=== PATIENT | female | born 1990 | race Caucasian/White ===

== ENCOUNTER 2022-03-20 12:03 | Outpatient (CLI) | payer OTHER, SELFPAY ==
--- NOTE | 2022-03-20 12:15 | CRLHL7_ITS ---
For Patients: As a result of the Cures Act, medical imaging exams and procedure reports are released immediately into your electronic medical record. You may view this report before your referring provider. If you have questions, please contact your health care provider. INDICATION: First trimester scan, establish dates. COMPARISON: None. TECHNIQUE: Real-time resendiz-scale imaging of the pelvis was performed. FINDINGS: Sonographic imaging demonstrates a single living intrauterine gestation. The embryo demonstrates a regular cardiac rate measuring 176 beats per minute. The embryo`s crown-rump length measurement of 2.3 cm corresponds to a gestational age of 9 weeks and 0 days with a sonographic due date of 10/23/2022. There is a normal-appearing yolk sac. There are no gross abnormalities noted within the embryo at this early state of development. The gestational sac has a normal appearance. There is no evidence of a perigestational hemorrhage. The amount of fluid within the sac appears appropriate for gestational age. The cervix is closed. The myometrium appears normal. The ovaries are of normal size. There are no suspicious fluid collections noted in the cul-de-sac. Trace physiologic free fluid may be present. IMPRESSION: Normal first trimester OB ultrasound exam. Gestational age calculated at 9 weeks 0 days with a sonographic due date of 10/23/2022. Dictated by Ananda Neal MD @ 03/20/2022 2:12:11 PM (Electronically Signed)
== END 2022-03-20 12:04 | disposition home or self-care (01) ==
PROVIDERS: Visit Provider Advanced Practice Midwife
DX: Z34.91 Encounter for supervision of normal pregnancy, unspecified, first trimester (principal); Z3A.09 9 weeks gestation of pregnancy
CPT/HCPCS: 76817

== ENCOUNTER 2022-03-20 14:14 | Outpatient (CLI) | payer OTHER, SELFPAY ==
[2022-03-20 18:41] LABS: Hepatitis B Surface Antigen* Negative (Negative)
[2022-03-20 18:50] LABS: HIV 1/2/P24 Combo Screen* Negative (Negative)
[2022-03-20 18:59] LABS: Hepatitis C Virus Antibody* Negative (Negative)
[2022-03-22 15:36] LABS: Varicella-Zoster Virus Ab, IgG 444.2 IV
[2022-03-22 15:39] LABS: Rubella Antibody IgG 35.3 IU/mL
[2022-03-22 18:34] LABS: Rapid Plasma Reagin (RPR) Non Reactive (Non Reactive)
== END 2022-03-20 14:15 | disposition home or self-care (01) ==
LOC: NFLDREF 14:15
PROVIDERS: Visit Provider Physician Assistant
DX: Z34.91 Encounter for supervision of normal pregnancy, unspecified, first trimester (principal); Z3A.09 9 weeks gestation of pregnancy
CPT/HCPCS: 86592; 86703; 86762; 86787; 86803; 86850; 86900; 86901; 87086; 87340; 87491; 87591; 88175

== ENCOUNTER 2022-06-02 07:16 | Outpatient (CLI) | payer OTHER, SELFPAY ==
--- NOTE | 2022-06-02 07:15 | CRLHL7_ITS ---
For Patients: As a result of the Century Cures Act, medical imaging exams and procedure reports are released immediately into your electronic medical record. You may view this report before your referring provider. If you have questions, please contact your health care provider. INDICATION: Evaluate anatomy. COMPARISON: 03/1922 TECHNIQUE: Real time resendiz scale imaging of the fetus was performed as well as color Doppler analysis of the umbilical vessels. FINDINGS: Sonographic imaging demonstrates a single living intrauterine gestation. Fetus demonstrates a regular cardiac rate of 159 beats per minute. Fetus has a variable position. The placenta lies fundal posterior without evidence of placenta previa. The edge of the placenta is located 5.8 cm from the internal cervical os. Amniotic fluid volume appears normal. Single deepest vertical pocket: 4.5 cm. The cervix is closed and measures 3.1 cm in length. The composite ultrasound gestational age is calculated at 20 weeks 4 days with an estimated sonographic due date of 10/16/2022. The estimated weight is 364 grams which lies at the 85th %. The following biometric measurements were obtained: Biparietal diameter: 4.8 cm/20 weeks 3 days 71st% Head circumference: 17.4 cm/20 weeks 0 days 47th% Abdominal circumference: 16.2 cm/21 weeks 2 day 87th% Femur length: 3.2 cm/19 weeks 6 days 45th% The HC/AC ratio measures: 1.07 range (1.07-1.25) On anatomic survey, there is a normal appearance of the cerebral ventricles, cavum septi pellucidi, cisterna magna and cerebellum. The nose, lips, and facial profile are not well-visualized. The cervical, thoracic and lumbar spine are well visualized and appear normal. Possible echogenic left ventricular focus, images 22-23. The left and right ventricular outflow tracts appear normal. The diaphragm and stomach appear normal. The kidneys and bladder also appear normal. There is a normal three-vessel cord and cord insertion site. The four extremities appear normal. IMPRESSION: Concordance of clinical and sonographic dating. Incomplete visualization of the nose, lips and profile due to position. Possible echogenic focus left ventricle. A short-term follow-up in 2 weeks suggested for further evaluation of these findings. Remainder of the anatomic survey is normal. Dictated by Ananda Neal MD @ 06/02/2022 10:17:45 AM (Electronically Signed)
== END 2022-06-02 07:17 | disposition home or self-care (01) ==
LOC: US 07:17
PROVIDERS: Visit Provider Obstetrics & Gynecology
DX: Z34.92 Encounter for supervision of normal pregnancy, unspecified, second trimester (principal); Z3A.20 20 weeks gestation of pregnancy
CPT/HCPCS: 76805

== ENCOUNTER 2022-06-16 13:49 | Outpatient (CLI) | payer OTHER, SELFPAY ==
--- NOTE | 2022-06-16 14:00 | CRLHL7_ITS ---
For Patients: As a result of the Century Cures Act, medical imaging exams and procedure reports are released immediately into your electronic medical record. You may view this report before your referring provider. If you have questions, please contact your health care provider. INDICATION: F/U ON MISSED ANATOMY COMPARISON: 06/02/2022 TECHNIQUE: Real time resendiz scale imaging of the fetus was performed. FINDINGS: Sonographic imaging demonstrates a single living intrauterine gestation. Fetus demonstrates a regular cardiac rate of 141 beats per minute. Fetus has a vertex position. The placenta lies posteriorly. Amniotic fluid volume appears normal. Single deepest vertical pocket: 3.3 cm. The baby`s face turned posterior during the examination and the hands were in front of the face, preventing adequate visualization of the nose and lips. The heart also is not well visualized on today`s study. IMPRESSION: Persistent incomplete visualization of nose and lips. The heart is not well visualized either on today`s exam. Dictated by Ananda Neal MD @ 06/17/2022 12:50:47 PM (Electronically Signed)
== END 2022-06-16 13:50 | disposition home or self-care (01) ==
LOC: US 13:49
PROVIDERS: Visit Provider Obstetrics & Gynecology
DX: O35.8XX0 Maternal care for other (suspected) fetal abnormality and damage, not applicable or unspecified (principal)
CPT/HCPCS: 76816

== ENCOUNTER 2022-07-29 09:20 | Outpatient (CLI) | payer OTHER, SELFPAY ==
[2022-07-31 01:32] LABS: Rapid Plasma Reagin (RPR) Non Reactive (Non Reactive)
== END 2022-07-29 09:21 | disposition home or self-care (01) ==
PROVIDERS: Visit Provider Obstetrics & Gynecology
DX: Z34.90 Encounter for supervision of normal pregnancy, unspecified, unspecified trimester (principal)
CPT/HCPCS: 86592

== ENCOUNTER 2022-08-12 12:51 | Outpatient (CLI) | payer OTHER, SELFPAY | END 2022-08-12 12:52 | disposition home or self-care (01) | LOC: US 12:52 | PROVIDERS: Visit Provider Pediatrics Neonatal-Perinatal Medicine | DX: Z34.93 Encounter for supervision of normal pregnancy, unspecified, third trimester (principal); Z3A.30 30 weeks gestation of pregnancy | CPT/HCPCS: 76816 ==

== ENCOUNTER 2022-09-22 09:23 | Outpatient (CLI) | payer OTHER, SELFPAY ==
[2022-09-23 12:11] LABS: Strep B DNA Probe NEGATIVE (Negative)
[2022-09-23 12:26] LABS: Strep B Pen/Amox Allergy No
== END 2022-09-22 09:24 | disposition home or self-care (01) ==
LOC: NFLDREF 09:23
PROVIDERS: Visit Provider Obstetrics & Gynecology
DX: Z34.90 Encounter for supervision of normal pregnancy, unspecified, unspecified trimester (principal)
CPT/HCPCS: 87081; 87653

== ENCOUNTER 2022-09-22 10:13 | Outpatient (CLI) | payer OTHER, SELFPAY ==
--- NOTE | 2022-09-22 10:15 | CRLHL7_ITS ---
For Patients: As a result of the Century Cures Act, medical imaging exams and procedure reports are released immediately into your electronic medical record. You may view this report before your referring provider. If you have questions, please contact your health care provider. INDICATION: Third trimester scan, evaluate growth. COMPARISON: 06/16/2022 TECHNIQUE: Real time resendiz scale imaging of the fetus was performed. FINDINGS: Sonographic imaging demonstrates a single living intrauterine gestation. Fetus demonstrates a regular cardiac rate of 154 beats per minute. Fetus has a breech position. The placenta lies left posterior. Amniotic fluid volume appears lower limits normal and there is a single deepest vertical pocket: 2.5 cm. DESTINY 7.4 cm. The estimated weight is 2702gm which lies at the 41st %. On the prior OB ultrasound exam dated 06/02/2022 the estimated weight was at the 85th%. BPD 54th percentile. HC 85th percentile. AC 46th percentile. FL 14th percentile. The HC/AC ratio measures 1.07 range (0.92-1.08). IMPRESSION: Sonographic gestational age 36 weeks 1 day and sonographic due date 10/19/2022. Good correlation with dates. Normal interval growth. Estimated weight 41st percentile. Abdominal circumference 46th percentile. Lower limits of normal amniotic fluid with four-quadrant DESTINY measuring 7.4 cm. Dictated by Ananda Neal MD @ 09/22/2022 11:14:29 AM (Electronically Signed)
== END 2022-09-22 10:14 | disposition home or self-care (01) ==
LOC: US 10:13
PROVIDERS: Visit Provider Obstetrics & Gynecology
DX: Z34.93 Encounter for supervision of normal pregnancy, unspecified, third trimester (principal); Z3A.36 36 weeks gestation of pregnancy
CPT/HCPCS: 76816

== ENCOUNTER 2022-09-29 13:56 | Outpatient (CLI) | payer OTHER, SELFPAY ==
--- NOTE | 2022-09-29 14:00 | CRLHL7_ITS ---
For Patients: As a result of the Century Cures Act, medical imaging exams and procedure reports are released immediately into your electronic medical record. You may view this report before your referring provider. If you have questions, please contact your health care provider. INDICATION: 32 year-old female. Evaluate presentation. Follow-up breech presentation. TECHNIQUE: Limited transabdominal obstetrical ultrasound. COMPARISON: September 22, 2022. FINDINGS: Single living intrauterine in kala breech presentation unchanged. Posterior and left-sided placenta. heart rate 142 beats per minute. Amniotic fluid volume index is normal at 8.2 cm. Single deepest pocket measurement also normal at 3.8 cm. IMPRESSION: Single living intrauterine in breech presentation. Dictated by Gonzales Espinal MD @ 09/29/2022 6:06:40 PM (Electronically Signed)
== END 2022-09-29 13:57 | disposition home or self-care (01) ==
PROVIDERS: Visit Provider Obstetrics & Gynecology
DX: O32.1XX0 Maternal care for breech presentation, not applicable or unspecified (principal)
CPT/HCPCS: 76815

== ENCOUNTER 2022-10-01 07:04 | Outpatient (CLI) | payer OTHER, SELFPAY ==
[2022-10-01 07:25] VITALS: PULSE 128; O2SAT 98
[2022-10-01 07:27] VITALS: BP 113/77; PULSE 120; RESP 16; TEMP 37.2
[2022-10-01 08:04] LABS: SARS PCR* Negative SARS-CoV-2 (Negative)
[2022-10-01] MEDS: TERBUTALINE 1 MG/ML INJ 0.25 MG SUBCUT (08:13)
--- NOTE | 2022-10-01 08:56 | PM.PROC ---
Procedure Note Date Seen: 10/01/22 Date of procedure: 10/01/22 Will [facility] bill your pro fee for this procedure?: Yes Pre-op diagnosis: Intrauterine at 37 1/7 weeks, kala breech presentation Post-op diagnosis: same Procedure: External cephalic version Procedure Description: PREOPERATIVE DIAGNOSIS: 1. Intrauterine at 37 1/7 weeks gestation. 2. Kala breech presentation. POSTOPERATIVE DIAGNOSIS: 1. Intrauterine at 37 1/7 weeks gestation. 2. Kala breech presentation. PROCEDURE: 1. Nonstress test. 2. Limited OB ultrasound. 3. External cephalic version. SURGEON: Jez. AUTOMATIC PRINT DEVELOPER: Chandler.. ANESTHESIA: None. COMPLICATIONS: None. FINDINGS: Nonstress test: heart rate baseline 135 beats per minute, good variability, 15 x 15 accelerations present, no decelerations, category 1. Limited OB ultrasound: Single, living, intrauterine gestation in a kala breech presentation with the back along the maternal right, grossly normal amniotic fluid volume, posterior placenta. PROCEDURE NOTE: A nonstress test was performed, which was reactive and reassuring. There were uterine contractions noted on uterine activity monitoring, but they were palpably mild and the patient was unaware them. A limited OB ultrasound was performed at the bedside to determine position. Findings noted above. Informed consent was obtained for external cephalic version. Terbutaline 0.25 mg was administered to the patient subcutaneously. External cephalic version was attempted. I applied upward pressure to the breech, Shelley Arteaga applied pressure to the vertex, and we attempted to gently coax the fetus in a backward roll in a counter-clockwise direction. This attempt was unsuccessful. A 2nd attempt was made to coax the in a forward roll in a clockwise direction, as Shelley applied pressure to the breech and I applied pressure to the vertex. This attempt was unsuccessful. A 3rd attempt was made, again in a counter-clockwise direction, which was also unsuccessful. heart tones were noted to be normal between and after the attempts. The patient tolerated the procedure well. monitoring for 1 hour after the procedure was continued to be reassuring. Anesthesia: none Surgeon: Amada Story MD Supervisor [employer] Department: Shelley Arteaga Condition: stable Disposition: other (Home, self-care, after 1 hour of monitoring.)
--- NOTE | 2022-10-01 10:42 | PC.OBNST ---
The provider's electronic signature indicates the NST is reactive/appropriate for gestational age. *Note to provider: If an addendum is required, open the patient's chart and click on the note under the Nurse/Allied Health tab.
== END 2022-10-01 10:17 | disposition home or self-care (01) ==
LOC: OB 10:02 → OB CLI 15:50
PROVIDERS: Visit Provider Obstetrics & Gynecology
DX: Z34.93 Encounter for supervision of normal pregnancy, unspecified, third trimester (principal); Z3A.37 37 weeks gestation of pregnancy
CPT/HCPCS: 59025; 59412; 87635; 99211; J3105

== ENCOUNTER 2022-10-14 03:34 | Inpatient (IN) | payer OTHER, SELFPAY ==
[2022-10-14] VITALS (32 sets, daily range): BP systolic 94–125; BP diastolic 56–75; PULSE 63–108; RESP 16–20; TEMP 36.5–36.7; O2SAT 96–100
[2022-10-14 02:57] LABS: Amnisure Rom* POSITIVE
--- NOTE | 2022-10-14 03:34 | W.PM.LDBA ---
Subjective History of Present Illness Time Seen by Provider: 03:34 Date Seen: 10/14/22 Narrative: Patient is being admitted to Labor and Delivery for delivery. She is a 32 year old at 39 0/7 weeks gestation. Her full history and physical was dictated by Dr. Story on 09/29/22. Please see this for details. Patient presents to labor and delivery at this time after concerns for watery like discharge at home about 1 hour prior to arrival to unit. Patient denied pelvic pain, vaginal bleeding, normal movement. Patient had scheduled section later today due to breech presentation. Comments: Expected Delivery Route/Plan MD patient - Primary for breech at [address] Story on 10/14/22. H&P done 09/29/[address] Story.? Consent signed 10/09/22. Specific Issues/Plans Blood type: O positive 1. Suboptimal facial views on FAS 06/02/2022 Follow-up ultrasound:? 06/16/2022?Persistent incomplete visualization of nose and lips. The heart is not well visualized either on today`s exam. Follow-up ultrasound scheduled for early August:Normal 2. Echogenic foci left ventricle Maternity T21 offered and discussed on 06/16/22:? declined 3.? Level 1 anatomy scan not yet completed after 2 tries.? Referral for level 2 US placed, but patient declined due to financial concerns. Will be able to do follow-up ultrasound after the of the year when insurance coverage changes: normal 08/11/22? 4. BREECH at 35 6/7 weeks Official US 09/22/22: Breech, SDP: 2.5cm, DESTINY: 7.4 normal but borderline low. EFW: 41%, BPD: 54%, HC: 85%, AC: 46%, FL: 14% ECV to be scheduled at 37 weeks:? Unsuccessful. Schedule primary at 39 weeks (form submitted) COVID vaccine:? Declined Flu shot: Declined Tdap: 08/26/2022 OB - Problem Based A/P Additional Plan (1) Breech presentation: Status: Acute (2) Labor and delivery affected by breech presentation: Status: Acute Plan 32-year-old with IUP at 390/7 weeks with known breech presentation presents to the unit after SROM at around 2:00 a.m. this morning. Breech presentation confirmed by bedside ultrasound. Cervical check consistent with labor. Will proceed with delivery now. GBS negative. Will recommend Ancef and Azithromycin as infection prophylaxis. Informed consent had been signed in clinic. Patient and agree with plan. OB Result Labs Labs: Amnisure positive OB Exam Physical Exam Vital signs: Pulse BP Pulse Ox 108 H 117/75 98 10/14/22 02:33 10/14/22 02:33 10/14/22 02:32 Detailed Labor and Delivery Exam Patient Gravid: Yes Dilation (cm): 3 Effacement (%): 100 Cervix position: mid Consistency: soft Contraction Frequency: Irregular Tachysystole: No Contraction intensity: Mild Fetus (Single) Station: 0 Position: Other (Bud breech confirmed by bedside ultrasound) Amniotic Membrane Status: SROM Amniotic Membrane Fluid Description: Clear Heart Rate Baseline: 130 Monitor Accelerations: Present Monitor Decelerations: None Clinical Psychologist Private Practice Variability: Moderate (6-25)
[2022-10-14 03:52] LABS: Hemoglobin* 10.8 gm/dL (12.0-16.0)
[2022-10-14] MEDS: LACTATED RINGERS 1000 ML 1,000 ML 999 ML IV (04:00)
[2022-10-14 04:19] LABS: Basophils Absolute Auto 0.03 K/uL (0.00-0.30); Basophils Percent Auto 0.3 % (0.0-3.0); Eosinophils Absolute Auto 0.06 K/uL (0.00-0.50); Eosinophils Percent Auto 0.6 % (0.0-7.0); Hematocrit 29.7 % (33.0-51.0); Hemoglobin* 10.7 gm/dL (12.0-16.0); Immature Granulocytes Abs Auto 0.09 K/uL (0.00-0.30); Immature Granulocytes Pct Auto 0.8 %; Lymphocytes Percent Auto 15.8 % (20-44); Mean Corpuscular HGB Conc 36 gm/dL (32-36); Mean Corpuscular Hemoglobin 34 pg (26-34); Mean Corpuscular Volume 93 fL (80-100); Monocytes Percent Auto 6.3 % (0.0-11.0); Neutrophils Percent Auto 76.2 % (42.0-72.0); Platelet Count* 280 K/uL (140-440); RDW Coefficient of Variation % 13.7 % (11.5-15.5); Red Blood Count 3.19 m/uL (4.00-5.20); White Blood Count* 10.88 K/uL (4.50-11.00)
[2022-10-14 04:21] LABS: Slide Review Reflex No
[2022-10-14 04:23] LABS: SARS PCR* Negative SARS-CoV-2 (Negative)
[2022-10-14] MEDS: AZITHROMYCIN 500 MG in 0.9 % SODIUM CHLORIDE 250 ml 250 ML 255 MG IVPB (04:30)
[2022-10-14] MEDS: CEFAZOLIN 2 GM INJ IVP (04:32)
[2022-10-14] MEDS: LACTATED RINGERS 1000 ML 1,000 ML 100 ML IV (04:52)
--- NOTE | 2022-10-14 05:38 | P.OBPRC_ITS ---
Procedure Pre-op/Post-op diagnoses: Pre-Op/Post-Op Diagnoses Pre-Op Diagnoses: 1. Intrauterine at 39 0/7 weeks 2. Kala breech presentation in labor, SROM Post-Op Diagnoses: 1. Same, now delivered Procedure Done: Global Procedure Details: Procedures Operation Date: 10/14/22 04:30 Actual Procedure Side Surgeon p Section Colleen Pena MD Estimated blood loss (mL): 295 Disposition: floor Anesthesia type: Spinal Complications: None Narrative: PREOPERATIVE DIAGNOSES: 1. Intrauterine at 39 0/7 weeks' gestation. 2. Kala breech, in labor, SROM POSTOPERATIVE DIAGNOSES: 1. Same now delivered NAME OF PROCEDURE: Primary low transverse section. ANESTHESIA: Spinal. COMPLICATIONS: None. QUANTITATIVE BLOOD LOSS: DRAINS: Lebron to gravity. FINDINGS: Live-born male infant, kala breech presentation, Apgars 9 and 9 at 1 and 5 minutes respectively. weight 7 lb 4 oz. PROCEDURE: After obtaining informed consent, the patient was taken to the operating room where spinal anesthesia was obtained and found to be adequate. She was prepared and draped in the normal sterile fashion in the dorsal supine position with a leftward tilt. A Pfannenstiel skin incision was made with a scalpel about 2 cm above symphysis pubic bone, 8-10 cm in length. This incision was carried down to the underlying layer of fascia with the Bovie and scalpel. The fascia was incised in the midline and the incision extended laterally. The rectus muscles were then in the midline. The Jaylen O retractor was then placed into the incision. Metzenbaum scissors utilized to create a bladder flap. The lower uterine segment was then incised in a transverse fashion with the scalpel. Upon entry into the uterus, no amniotic fluid was noted. The uterine incision was extended cephalo caudally with blunt finger fractionation. sacrum/buttocks were brought to incision and with fundal pressure fetus was delivered up to trunk, hips were then grasped with a lap and gently assisted delivery of both legs that were extended, then arms were assisted and delivered via the Loveset maneuver. head was hyperextended so Lfiopnnrw-Vkyfrsb-Ovaz maneuver was performed to help flex the head and deliver the head. The cord was doubly clamped and cut, and the infant was handed off the field to [facility] for evaluation. The placenta was delivered spontaneously with umbilical cord traction and fundal massage. The uterus was cleared of all clots and debris. The uterine incision was reapproximated in a running locking fashion with a 0 Vicryl suture. A 2nd layer of the same suture was used to imbricate in horizontal fashion. The gutters were inspected and cleared of blood clot. A small right paratubal cyst was removed with cautery, hemostasis secured. There were 2 more smaller paratubal cysts seen at the left adnexa not removed as there were more closely attached to the mesosalpinx to avoid risk of heavy bleeding. Small bleeding vessels from bladder flap were coagulated and Lety utilize o further secure hemostasis. All instruments and retractors were removed. The subfascial tissues were carefully inspected and hemostasis assured. The fascia was reapproximated in a running fashion with a looped 0 Vicryl suture. The subcutaneous tissues were inspected and hemostasis was assured. The subcutaneous fat layer was reapproximated with interrupted sutures of 3-0 Vicryl. The skin was closed in a subcuticular fashion with 4-0 Monocryl. The patient tolerated the procedure well. Sponge, lap, needle, and instrument counts were reported as correct x2. The patient was taken to the recovery room, awake, and in stable condition. She did receive 2 grams of IV Ancef and 500mh of Azithromycin preoperatively. 1 dose of TXA given while closing the subcutaneous tissue due to multiple small bleeding vessels with gentle manipulation of the tissue, also a compression dressing left in place to further secure hemostasis, avoid hematoma etc... Patient transferred in a stable condition to the floor.
--- NOTE | 2022-10-14 05:53 | W.ANESCHARGE ---
Anesthesia Charges Start Date/Time Anesthesia Start Date: 10/14/22 Anesthesia Start Time: 04:27 Stop Date/Time Anesthesia Stop Date: 10/14/22 Anesthesia Stop Time: 05:50 Summary Emergency: FUGITIVE INVESTIGATOR
--- NOTE | 2022-10-14 05:54 | P.NB_ITS ---
Nerve Block Nerve Block Time Seen by Provider: 05:45 Date Seen: 10/14/22 Type of block requested by surgeon for post-operative analgesia: TAP Side: bilateral Time out performed: Yes Verification of patient name: Yes Verification of date of : Yes Site marking: site marked Name of person performing procedure: Venu Juaquiny Continuous monitoring Was continuous monitoring of O2 sat, B/P, environmental monitoring technician, recorded every 15 minutes?: Yes Procedure Checklist: sterile prep, needles and gloves Ultrasound guided. Images saved: Yes Medications given in 5ml increments after negative aspiration: Marcaine %: 0.25 mL: 30 and Exparel mL: 10 Patient tolerated procedure well: Yes Block Charges Block Charge (with Pro Fee): TAP Bilateral Use of Ultrasound Machine for Block: Yes- US Guidance/pain block
[2022-10-14] MEDS: LACTATED RINGERS 1000 ML 1,000 ML 125 ML IV ×2 (07:00→10:18)
[2022-10-14] MEDS: DOCUSATE SODIUM 100 MG CAPSULE PO (08:50)
[2022-10-14] MEDS: FERROUS SULFATE 325 MG TABLET PO (08:50)
[2022-10-14] MEDS: diphenhydrAMINE 50 MG/ML inj 12.5 MG IVP (10:30)
[2022-10-14] MEDS: KETOROLAC 30 MG/ML inj IVP ×3 (11:10→23:13)
[2022-10-15 00:07] VITALS: BP 108/68; PULSE 76; RESP 18; O2SAT 96
[2022-10-15] MEDS: KETOROLAC 30 MG/ML inj IVP ×2 (06:56→13:32)
[2022-10-15 07:28] LABS: Hemoglobin* 10.1 gm/dL (12.0-16.0)
[2022-10-15 08:25] VITALS: BP 118/76; PULSE 96; RESP 18; TEMP 36.7; O2SAT 98
--- NOTE | 2022-10-15 09:08 | PM.OBPNCS1 ---
OB - PN: A/P Assessment and Plan (1) Routine follow-up: Status: Acute (2) Lactating mother: Status: Acute (3) Status post section: Status: Acute Plan day: 1 Plan: routine postop care Comments: May see if desired. Continue to work on . Anticipate discharge tomorrow 10/16 or Tuesday 10/17. OB - PN: Subj Subjective Date Seen: 10/15/22 Narrative: Doris is a 32 y.o. at 39 0/7 weeks gestation who was admitted to L & D for PROM with breech presentation. ?She had an uncomplicated .?The patient feels well. ?The pain is well controlled with current medications. ?She has no new complaints. ?She is breast feeding and reports things are going ok but baby has been very sleepy. They are continuing to work on feedings.? the patient has done well.? Vitals have been stable.? She has remained afebrile.? Has a good appetite, is tolerating a general diet. ?She is voiding without difficulty.? She is passing gas and has not had a bowel movement.? She is ambulating and denies any dizziness.? Has Small amount of rubra lochia. OB - PN: Obj Exam Physical Exam: Vital signs: Temp Pulse Resp BP Pulse Ox O2 Del Method 97.9 F 76 18 108/68 96 10/14/22 16:17 10/15/22 00:07 10/15/22 00:07 10/15/22 00:07 10/15/22 00:07 10/15/22 00:07 Narrative: GENERAL APPEARANCE:? normal affect, alert, no distress MOOD:? appropriate CHEST:? clear to auscultation HEART:? regular rate and rhythm ABDOMEN:? soft, non-tender the uterine fundus is At Umbilicus, Midline and is appropriate for the stage of recovery. PERINEUM:? mild edema of the perineum EXTREMITIES:? normal and no edema Incision: Dressing in place, clean, dry and intact. To be removed today. Urinary Catheter Management: Urethral: Cath placed during this visit: yes Urethral indwelling: No Reason for continuing: surgical procedure Insertion date: 10/14/22 Insertion time: 04:30 OB - PN: Obj Data Labs Labs: Laboratory Results - last 24 hr 10/15/22 07:23 Hgb 10.1 L
[2022-10-15] MEDS: DOCUSATE SODIUM 100 MG CAPSULE PO (09:14)
[2022-10-15] MEDS: ACETAMINOPHEN 500 MG TABLET 1000 MG PO ×3 (09:14→22:34)
[2022-10-15 15:50] VITALS: BP 100/62; PULSE 75; RESP 18; TEMP 36.4; O2SAT 100
[2022-10-15] MEDS: IBUPROFEN 600 MG TABLET PO (18:07)
[2022-10-16 00:03] VITALS: BP 105/68; PULSE 80; RESP 16; TEMP 37.1
[2022-10-16] MEDS: IBUPROFEN 600 MG TABLET PO (03:00)
[2022-10-16] MEDS: ACETAMINOPHEN 500 MG TABLET 1000 MG PO (07:30)
--- NOTE | 2022-10-16 08:37 | PM.OBDSCS1 ---
DS: Providers Provider Time Seen by Provider: 08:37 Date Seen: 10/16/22 Date of admission: 10/14/22 03:34 Primary care physician: Not a Local Provider Admitting Clinician: Colleen Pena MD Attending Physician on discharge: Colleen Pena MD DS: Diagnosis Discharge Diagnosis (1) Status post section: Status: Acute (2) Lactating mother: Status: Acute Exam Narrative: Exam Narrative: VSS. ?Afebrile GENERAL APPEARANCE: ?normal affect, alert, no distress MOOD: ?appropriate HEENT: normocephalic, neck supple, full ROM CHEST: ?Symmetrical chest wall movement. ?Normal respiratory effort. ?Clear to auscultation HEART: ?regular rate and rhythm ABDOMEN: ?soft, non-tender. Uterine fundus is firm, 2 below Umbilicus, Midline and is appropriate for the stage of recovery. ?Bowel sounds present. EXTREMITIES: ?normal and no edema SKIN: warm, dry. ? ?Incision clean/dry/well approximated. ?No signs of infection noted. Const: Vital Signs, click to edit/add: Vital Signs - 24 hr 10/15/22 15:50 10/16/22 00:03 Temperature 97.5 F L 98.8 F Pulse Rate [Pulse Oximeter] 75 80 Respiratory Rate 18 16 Blood Pressure [Le ft Arm] 100/62 105/68 Pulse Oximetry 100 Oxygen Delivery Me thod Room Air Room Air Documenting provider has reviewed patient's vital signs: yes OB - DS: Summary Hospital Course Hospital Course: Doris is a 32 y.o. who was admitted to L & D for planned for breech. ?She had an uncomplicated primary The patient feels well. ?The pain is well controlled with current medications. ?She has no new complaints. ?She is breast feeding and reports things are now going well.? the patient has done well.? Vitals have been stable.? She has remained afebrile.? Has a good appetite, is tolerating a general diet. ?She is voiding without difficulty.? She is passing gas and has had a bowel movement.? She is ambulating and denies any dizziness.? Has Small amount of rubra lochia. ?She is undecided on plan for prevention. Peripartum Data Procedures: Procedures Operation Date: 10/14/22 04:30 Actual Procedure Side Surgeon p Section Colleen Pena MD complications: none Infant Gender: Male Discharge Plan: Home Status at Discharge Functional status at discharge: independent ambulation Overall status at discharge: patient is progressing back to baseline Time Spent with Patient Time attestation: Total time spent providing and/or coordinating discharge services: Time spent: Less than 30 minutes Discharge Plan Discharge Disposition: Home, Self-Care Date of Admission: 10/14/22 03:34 Attending Provider on Discharge: Shelley Arteaga Primary Care Provider: Provider,Not a Local Condition: Stable Anticipated Discharge Date/Time: 10/16/22 12:40 Discharge Medications: New docusate sodium 100 mg Capsule 100 mg PO BID PRNQty: 100 0RF Rx Instructions: Take 1 cap 1-2 times a day as needed for constipation ibuprofen 600 mg Tablet 600 mg PO Q6H PRN (Reason: Pain) Qty: 60 0RF oxycodone 5 mg Tablet 5 - 10 mg PO Q4H PRN (Reason: Pain) Qty: 20 0RF Continued with DHA-Folic Acid 400-32.5 mcg-mg tablet,chewable 1 tab PO DAILY Discharge Orders: Discharge Order (Routine); Ordered 10/16/22 Ordered By: Shelley Arteaga Patient Education: OB Over the Counter Medication Information, OB /Breast Feeding Additional Instructions: Followup in 2 weeks and 6 weeks. Activity Level: Activity as Tolerated Discharge Diet: Regular Follow Up Appointments: Provider,Not a Local [Primary Care Provider] - Forms: [employer] Info Instructions
[2022-10-16 09:04] VITALS: BP 113/70; PULSE 98; RESP 16; TEMP 36.6; O2SAT 98
== END 2022-10-16 12:40 | disposition home or self-care (01) | DRG 788 ==
PROVIDERS: Admitting Provider Obstetrics & Gynecology; Visit Provider Obstetrics & Gynecology
PROC: 10D00Z1 Extraction of Products of Conception, Low, Open Approach (ICD-10-PCS; CPT 59514; principal; 2022-10-14 04:15)
DX: O32.1XX0 Maternal care for breech presentation, not applicable or unspecified (principal); Z3A.39 39 weeks gestation of pregnancy; Z37.0 Single live birth
CPT/HCPCS: 01961; 36415; 76815; 76942; 84112; 85018; 85025; 86850; 86900; 86901; 87635; 99140; 99213; A9270; C9290; J0456; J0690; J1100; J1200; J1885; J2274; J2405; J2590; J3490; J7050; J7120

== ENCOUNTER 2024-08-04 07:14 | Outpatient (CLI) | payer OTHER, SELFPAY ==
--- NOTE | 2024-08-04 07:15 | CRLHL7_ITS ---
For Patients: As a result of the Century Cures Act, medical imaging exams and procedure reports are released immediately into your electronic medical record. You may view this report before your referring provider. If you have questions, please contact your health care provider. INDICATION: First trimester scan, establish dates. COMPARISON: None. TECHNIQUE: Real-time resendiz-scale imaging of the pelvis was performed. FINDINGS: Intrauterine gestational sac is present measuring 1.6 cm, 6 weeks 3 days. pole is present measuring 3.2 millimeters, 6 weeks 0 days. Estimated sonographic due date 03/30/2025. No heart tones. No perigestational hemorrhage. Normal yolk sac measuring 5 millimeters. Simple cyst within the right ovary is present measuring 2.9 cm. Normal left ovary. No pelvic free fluid. IMPRESSION: Intrauterine with sonographic gestational age 6 weeks 0 days. No heart tones. Follow-up in 10-14 days recommended. Dictated by Ananda Neal MD @ 08/04/2024 9:30:08 AM (Electronically Signed)
== END 2024-08-04 07:15 | disposition home or self-care (01) ==
PROVIDERS: Visit Provider Registered Nurse
DX: Z34.91 Encounter for supervision of normal pregnancy, unspecified, first trimester (principal); Z3A.01 Less than 8 weeks gestation of pregnancy
CPT/HCPCS: 76817

== ENCOUNTER 2024-08-10 09:30 | Outpatient (CLI) | payer OTHER, SELFPAY | END 2024-08-10 09:31 | disposition home or self-care (01) | LOC: NFLDREF 08-21 15:33 | PROVIDERS: Visit Provider Registered Nurse | DX: O20.9 Hemorrhage in early pregnancy, unspecified (principal) | CPT/HCPCS: 84702 ==

== ENCOUNTER 2024-08-17 09:29 | Outpatient (CLI) | payer OTHER, SELFPAY | END 2024-08-17 09:30 | disposition home or self-care (01) | LOC: NFLDREF 08-30 13:01 | PROVIDERS: Visit Provider Registered Nurse | DX: O20.9 Hemorrhage in early pregnancy, unspecified (principal) | CPT/HCPCS: 84702 ==

== ENCOUNTER 2024-08-24 09:30 | Outpatient (CLI) | payer OTHER, SELFPAY | END 2024-08-24 09:31 | disposition home or self-care (01) | LOC: NFLDREF 09-03 03:53 | PROVIDERS: Visit Provider Registered Nurse | DX: O03.9 Complete or unspecified spontaneous abortion without complication (principal) | CPT/HCPCS: 84702 ==

== ENCOUNTER 2024-08-31 09:28 | Outpatient (CLI) | payer OTHER, SELFPAY | END 2024-08-31 09:29 | disposition home or self-care (01) | LOC: NFLDREF 09-04 03:57 | PROVIDERS: Visit Provider Registered Nurse | DX: O03.9 Complete or unspecified spontaneous abortion without complication (principal) | CPT/HCPCS: 84702 ==

== ENCOUNTER 2024-09-07 09:30 | Outpatient (CLI) | payer OTHER, SELFPAY | END 2024-09-07 09:31 | disposition home or self-care (01) | LOC: NFLDREF 09-13 03:26 | PROVIDERS: Visit Provider Registered Nurse | DX: O03.9 Complete or unspecified spontaneous abortion without complication (principal) | CPT/HCPCS: 84702 ==

== ENCOUNTER 2024-09-11 11:27 | Outpatient (CLI) | payer OTHER, SELFPAY | END 2024-09-11 11:28 | disposition home or self-care (01) | LOC: NFLDREF 09-15 03:25 | PROVIDERS: Visit Provider Registered Nurse | DX: O02.81 Inappropriate change in quantitative human chorionic gonadotropin (hCG) in early pregnancy (principal) | CPT/HCPCS: 84702 ==

== ENCOUNTER 2024-09-12 11:11 | Outpatient (CLI) | payer OTHER, SELFPAY ==
--- NOTE | 2024-09-12 11:30 | CRLHL7_ITS ---
For Patients: As a result of the Century Cures Act, medical imaging exams and procedure reports are released immediately into your electronic medical record. You may view this report before your referring provider. If you have questions, please contact your health care provider. INDICATION: Inappropriate change in beta HCG after miscarriage, vaginal bleeding COMPARISON: 08/04/2024 TECHNIQUE: Grayscale and color transvaginal ultrasound of the uterus and both ovaries. FINDINGS: The uterus is retroverted. Normal overall uterine size. The endometrium measures 3 millimeters in double thickness. There is no longer an intrauterine gestational sac. No embryonic or parts are identified. There is some hypervascular heterogeneously hyperechoic material at the uterine fundus. The right ovary measures 2.8 x 1.7 x 2.3 cm. The left ovary measures 2.9 x 1.5 x 2.1 cm. There are a few small follicles. No large ovarian cyst. No solid ovarian mass. There is a small amount of pelvic free fluid without debris. IMPRESSION: Small amount of retained products of conception at the uterine fundus. No visible embryonic or parts. Dictated by Yolande Payne MD @ 09/12/2024 12:15:56 PM (Electronically Signed)
== END 2024-09-12 11:12 | disposition home or self-care (01) ==
PROVIDERS: Visit Provider Obstetrics & Gynecology
DX: O36.80X0 Pregnancy with inconclusive fetal viability, not applicable or unspecified (principal); O03.4 Incomplete spontaneous abortion without complication
CPT/HCPCS: 76817

== ENCOUNTER 2024-09-13 09:20 | Day surgery (SDC) | payer OTHER, SELFPAY ==
[2024-09-13 09:42] VITALS: BMI 22.2
[2024-09-13] MEDS: LACTATED RINGERS 1000 ML 1,000 ML 100 ML IV (09:59)
[2024-09-13 10:00] VITALS: BP 107/74; PULSE 76; RESP 16; TEMP 37.2; O2SAT 100
[2024-09-13] MEDS: SODIUM CHLORIDE 0.9 % (FLUSH) 10 ML SYRINGE IVF (10:00)
[2024-09-13 10:08] LABS: Hemoglobin* 12.6 gm/dL (12.0-16.0)
[2024-09-13] MEDS: DOXYCYCLINE HYCLATE 200 MG in 0.9 % SODIUM CHLORIDE 250 ml 250 ML 250 MG IVPB (10:30)
--- NOTE | 2024-09-13 10:37 | W.PM.H&PU ---
History & Physical Update History & Physical Update H&P Reviewed and patient assessed: The following changes are noted below H&P Updates: Currently having some spotting. No pain. Physical exam: General: No acute distress Psych: Alert and oriented x4, full affect HEENT: Normocephalic, atraumatic Heart: Regular rate and rhythm, no murmur rub or gallop Lungs: Clear to auscultation bilaterally Abdomen: Soft, no tenderness, rebound, or guarding Lower extremities: No edema or erythema Pelvic exam: Defer to OR Counseling We discussed early loss and retained products of conception. She has undergone expectant management with abnormal beta HCG trend. Thus, surgical management is recommended. We discussed that this is the primary mode of treatment if patient presents in an emergent situation which include hemorrhage (excessive/life threatening bleeding) and infection. It is also used if other management options fail. I reviewed how this procedure is performed. This is done in the operating room with conscious sedation and paracervical block (usually). The cervix is dilated open and a 5mm camera is inserted to visualize the uterine cavity/any possible retained products of conception. My primary approach will be utilizing a soft tissue shaver for targeted removal. However, if there is too much tissue or if I am having trouble with visualization due to bleeding, I will switch to suction curettage. A plastic curette is advanced into the uterus and connected to a vacuum. The vacuum then pulls the tissue out of the uterus. Lastly, I might have to utilize sharp curetting if tissue is unable to be removed with the previous 2 approaches. All tissue removed from the uterus is sent to the lab for testing to verify that tissue was obtained. We briefly talked about the possibilities: retained products of conception versus molar versus abnormal placentation. Ultrasound guidance is generally not required. Risk of bleeding requiring blood transfusion is around 1% Risks with a suction curettage include injury to cervix or uterus 1/400-1. Infection in the uterus resulting in endometritis 1400-. She will receive antibiotics in the IV in the operating room prior to the procedure to prevent infection (200 mg of doxycycline). Chance of Asherman syndrome resulting in inability to conceive a in the future: 08/2499. Chance of anesthesia complications are extremely rare: Less than 1/100,000 especially with negative personal or family history of anesthesia issues. Expected recovery: Mild cramping after miscarriage/surgery usually controlled with [id number] extra-strength Tylenol and ibuprofen. Only restriction for activity postoperatively/after a miscarriage is nothing vaginally for 2 weeks. Strongly recommend avoiding conception until beta hcg is undetectable. She should expect to have some bleeding for 2-4 weeks after surgery or spontaneous miscarriage. We will trend her beta HCG weekly until undetectable. All of her questions were answered to the best of my abilities. After reviewing risk, benefits and alternatives, patients desires to proceed with hysteroscopy, dilation and curettage with possible suction and sharp curettage. Patient's blood type: O positive. RhoGAM not indicated.
[2024-09-13 10:40] LABS: HCG Qualitative Serum* Positive (Negative)
[2024-09-13] MEDS: LIDOCAINE 1%-EPI 1:100,000 20 ML INFILTRATI (11:01)
[2024-09-13 11:27] VITALS: BP 107/71; PULSE 96; RESP 16; TEMP 36.9; O2SAT 100
--- NOTE | 2024-09-13 11:27 | SUR.OPER ---
[id number]
--- NOTE | 2024-09-13 11:33 | W.ANESCHARGE ---
Anesthesia Charges Start Date/Time Anesthesia Start Date: 09/13/24 Anesthesia Start Time: 10:42 Stop Date/Time Anesthesia Stop Date: 09/13/24 Anesthesia Stop Time: 11:30 Coding CPT Codes CPT Codes: ANESTH HYSTEROSCOPE/GRAPH - 73003 ([id number]) P1 - NORMAL HEALTHY PATIENT, QK - LABELING ASSOCIATE 2-4 CNCRNT ANES PROC, QX - MANAGER COMMISSION SVC W/ MED DIRECTION
[2024-09-13 11:45] VITALS: BP 113/76; PULSE 83; RESP 16; O2SAT 100
--- NOTE | 2024-09-13 11:49 | W.ANESCHARGE ---
Anesthesia Charges Start Date/Time Anesthesia Start Date: 09/13/24 Anesthesia Start Time: 10:42 Stop Date/Time Anesthesia Stop Date: 09/13/24 Anesthesia Stop Time: 11:30 Coding CPT Codes CPT Codes: ANESTH HYSTEROSCOPE/GRAPH - 11971 ([id number]) P1 - NORMAL HEALTHY PATIENT, QK - PARKING LOT SPOTTER 2-4 CNCRNT ANES PROC, QX - CHALK EXTRUDING MACHINE OPERATOR SVC W/ MED DIRECTION
[2024-09-13 12:00] VITALS: BP 110/70; PULSE 74; RESP 16; O2SAT 100
--- NOTE | 2024-09-13 12:14 | W.PM.GYNPROC ---
Procedure Note Time Seen by Provider: 12:14 Date of procedure: 09/13/24 Will [facility] bill your pro fee for this procedure?: Yes Pathology: specimen obtained, sent to pathology (Retained products of conception ) Procedure Description: Preoperative diagnosis: Doris is a 34 year-old here for retained products of conception. Postoperative diagnosis: Same Procedure: Hysteroscopy and curettage. Anesthesia: Conscious sedation with paracervical block. Surgeon:Nickie Hernandez MD Estimated blood loss: 10 mL Preoperative antibiotic: 200 mg of doxycycline IV Specimen: Retained products of conception Findings: Exam under anesthesia: Cervix palpates normal, clot protruding from the cervix. Uterus: retroverted position, 6 week size, mobile, without nodularity/masses palpable. Adnexa were without fullness or nodularity. On hysteroscopy: Obviously retained products of conception attached to posterior uterine wall. Procedure: Doris was taken to the operating where conscious sedation was found to be adequate. She was placed in the dorsal lithotomy position. An exam under anesthesia was performed with findings stated above. She was then prepped and draped in normal sterile manner. Bladder was drained with a straight cath. Urine output: 30 mL. A bivalve metal speculum was placed in the vaginal canal. The cervix and vaginal canal appear normal. A paracervical block was placed using 1% lidocaine with epinephrine: 5 mL injected at the 4 and 8 o'clock positions on the cervix. The anterior lip of the cervix was then grasped with a long Allis clamp. The cervix did not need dilation. The hysteroscope advanced into the uterus and a diagnostic hysteroscopy was performed with findings stated above. Normal saline was used as the insufflation medium. Soft tissue shaver was used to perform excision of retained products of conception and global curetting. The uterus and documented a normal appearing uterine cavity at the end of the procedure. Fluid deficit at the end of the procedure 550 mL. The hysteroscope and Allis clamp were removed from the uterus and cervix. Excellent hemostasis noted. Nothing was used for hemostasis. The patient tolerated the procedure well. Sponge, lap and instruments counts were correct at the end of the procedure. The patient was awakened from anesthesia and taken to the recovery area in stable condition. Surgical debrief performed at the end of the procedure.
[2024-09-13 12:15] VITALS: BP 114/69; PULSE 82; RESP 16; O2SAT 100
== END 2024-09-13 12:45 | disposition home or self-care (01) ==
PROVIDERS: Visit Provider Obstetrics & Gynecology
PROC: 0UDB8ZZ Extraction of Endometrium, Via Natural or Artificial Opening Endoscopic (ICD-10-PCS; CPT 58558; principal; 2024-09-13 10:45)
DX: O03.4 Incomplete spontaneous abortion without complication (principal)
CPT/HCPCS: 59812; 00952; 01965; 36415; 84703; 85018; 86850; 86900; 86901; 88305; C1782; J1100; J1885; J2250; J2405; J2704; J3490; J7050; J7120

== ENCOUNTER 2024-09-18 13:18 | Outpatient (CLI) | payer OTHER, SELFPAY | END 2024-09-18 13:19 | disposition home or self-care (01) | LOC: NFLDREF 09-21 04:06 | PROVIDERS: Visit Provider Obstetrics & Gynecology | DX: O03.4 Incomplete spontaneous abortion without complication (principal) | CPT/HCPCS: 84702 ==

== ENCOUNTER 2024-09-28 10:43 | Outpatient (CLI) | payer OTHER, SELFPAY | END 2024-09-28 10:44 | disposition home or self-care (01) | LOC: NFLDREF 09-30 12:38 | PROVIDERS: Visit Provider Obstetrics & Gynecology | DX: O03.4 Incomplete spontaneous abortion without complication (principal) | CPT/HCPCS: 84702 ==

== ENCOUNTER 2024-12-15 07:53 | Outpatient (CLI) | payer OTHER, SELFPAY | END 2024-12-15 07:54 | disposition home or self-care (01) | LOC: NFLDREF 12-16 07:44 | PROVIDERS: Visit Provider Obstetrics & Gynecology | DX: O20.9 Hemorrhage in early pregnancy, unspecified (principal) | CPT/HCPCS: 84702 ==

== ENCOUNTER 2024-12-18 07:51 | Outpatient (CLI) | payer OTHER, SELFPAY | END 2024-12-18 07:52 | disposition home or self-care (01) | LOC: NFLDREF 12-27 01:30 | PROVIDERS: Visit Provider Obstetrics & Gynecology | DX: O20.9 Hemorrhage in early pregnancy, unspecified (principal) | CPT/HCPCS: 84702 ==

== ENCOUNTER 2025-04-04 10:42 | Outpatient (CLI) | payer OTHER, SELFPAY | END 2025-04-04 10:43 | disposition home or self-care (01) | LOC: NFLDREF 10:44 | PROVIDERS: Visit Provider Obstetrics & Gynecology | DX: O20.9 Hemorrhage in early pregnancy, unspecified (principal) | CPT/HCPCS: 84702 ==

== ENCOUNTER 2025-04-06 11:32 | Outpatient (CLI) | payer OTHER, SELFPAY | END 2025-04-06 11:33 | disposition home or self-care (01) | LOC: NFLDREF 04-08 16:58 | PROVIDERS: Visit Provider Obstetrics & Gynecology | DX: N96 Recurrent pregnancy loss (principal) | CPT/HCPCS: 84702 ==

== ENCOUNTER 2025-04-09 11:35 | Outpatient (CLI) | payer OTHER, SELFPAY | END 2025-04-09 11:36 | disposition home or self-care (01) | LOC: NFLDREF 04-13 10:30 | PROVIDERS: Visit Provider Obstetrics & Gynecology | DX: N96 Recurrent pregnancy loss (principal) | CPT/HCPCS: 84702 ==

== ENCOUNTER 2025-04-23 12:05 | Outpatient (CLI) | payer OTHER, SELFPAY ==
--- NOTE | 2025-04-23 12:15 | CRLHL7_ITS ---
For Patients: As a result of the Cures Act, medical imaging exams and procedure reports are released immediately into your electronic medical record. You may view this report before your referring provider. If you have questions, please contact your health care provider. LMP: 03/06/2025. MARCOS by LMP: 12/11/2025. GA: 6w, 6d. Prior Surgery: . INDICATION: Dating and viability. CRL: 0.96 cm x 7 w 0 d. MARCOS 12/10/2025. FHR: 142 bpm. GESTATIONAL SAC: 2.8 cm. appears within normal limits. YOLK SAC: 3.7 mm. RIGHT OVARY: Within normal limits. 3.0 x 2.4 x 1.7 cm. LEFT OVARY: Within normal limits. 2.8 x 2.3 x 2.5 cm, CL. IMPRESSION: 1. Single living intrauterine measures 7 weeks 0 days with a sonographic due date 12/10/2025. 2. Probable chorionic bump which measures 1.5 x 1.0 x 1.7 cm. Follow-up at 11-12 weeks could be considered for further follow-up. Ananda Neal M.D. Diagnostic Radiologist [email or web address] bM/Dictated by: Ananda Neal MD @ 04/23/2025 3:55:00 PM (Electronically Signed)
== END 2025-04-23 12:06 | disposition home or self-care (01) ==
LOC: US 12:06
PROVIDERS: Visit Provider Physician Assistant
DX: O09.521 Supervision of elderly multigravida, first trimester (principal); Z3A.01 Less than 8 weeks gestation of pregnancy
CPT/HCPCS: 76817; 83021; 86703; 86706; 86803; 86850; 86900; 86901; 87086; 87340; 87491; 87591

== ENCOUNTER 2025-04-23 13:51 | Outpatient (CLI) | payer OTHER, SELFPAY ==
[2025-04-23 21:10] LABS: Chlamydia DNA Amplified* NOT DETECTED (No Detected); GC DNA Amplified* NOT DETECTED (No Detected)
== END 2025-04-23 13:52 | disposition home or self-care (01) ==
PROVIDERS: Visit Provider Physician Assistant
DX: Z34.91 Encounter for supervision of normal pregnancy, unspecified, first trimester (principal); Z3A.01 Less than 8 weeks gestation of pregnancy
CPT/HCPCS: 83020; 83021; 85660; 86592; 86703; 86704; 86706; 86762; 86787; 86803; 86850; 86900; 86901; 87086; 87340; 87491; 87591

== ENCOUNTER 2025-05-22 09:09 | Outpatient (CLI) | payer OTHER, SELFPAY ==
--- NOTE | 2025-05-22 09:15 | CRLHL7_ITS ---
For Patients: As a result of the Century Cures Act, medical imaging exams and procedure reports are released immediately into your electronic medical record. You may view this report before your referring provider. If you have questions, please contact your health care provider. OB ULTRASOUND LESS THAN 14 WEEKS CLINICAL HISTORY: Follow-up chorionic bump. TECHNIQUE: Real time resendiz scale imaging of the fetus was performed. Transabdominal imaging performed. FINDINGS: Imaging: TA. LMP: 03/06/2025. MARCOS by LMP: 12/11/2025. GA: 11 weeks 0 days. Previous US: Yes, 04/23/2025. MARCOS by US: 12/10/2025. CRL: 4.6 cm, 11 weeks 3 days. MARCOS 12/08/2024. FHR: 173 bpm. GEST SAC: 4.96 cm, appears WNL. YOLK SAC: 2.1 mm, appears WNL. RIGHT OV: Not visualized. LEFT OV: 2.6 x 2.3 x 2.3 cm. IMPRESSION: 1. Single living intrauterine measures 11 weeks 3 days with sonographic due date 12/08/2025. 2. Decreased size of chorionic bump, now measuring 12 x 7 x 10 mm, previously measuring 15 x 10 x 17 mm. Ananda Neal M.D. Diagnostic Radiologist [email or web address] Transcribed: 12:39 pm DW/Dictated by: Ananda Neal MD @ 05/22/2025 11:35:00 AM (Electronically Signed)
== END 2025-05-22 09:10 | disposition home or self-care (01) ==
LOC: US 09:09
PROVIDERS: Visit Provider Physician Assistant
DX: O36.5910 Maternal care for other known or suspected poor fetal growth, first trimester, not applicable or unspecified (principal); Z3A.11 11 weeks gestation of pregnancy
CPT/HCPCS: 76816

== ENCOUNTER 2025-07-18 07:38 | Outpatient (CLI) | payer OTHER, SELFPAY | END 2025-07-18 07:39 | disposition home or self-care (01) | LOC: US 07:38 | PROVIDERS: Visit Provider Obstetrics & Gynecology | DX: O09.512 Supervision of elderly primigravida, second trimester (principal); Z3A.19 19 weeks gestation of pregnancy | CPT/HCPCS: 76811 ==